=== PATIENT | male | born 1990 | race Caucasian/White ===

== ENCOUNTER 2019-10-16 06:20 | Emergency (ER) | payer OTHER, MEDICAID ==
[2019-10-16] MEDS ORDERED: fentaNYL 100 MCG/2 ML SDV IVPUSH ONE ×3 (06:50→08:36)
[2019-10-16] MEDS ORDERED: Sodium Chloride 0.9% 10 ML Syringe FLUSH PRN (06:50)
[2019-10-16] MEDS ORDERED: Ondansetron 4 MG/2 ML SDV IV ONE ×2 (06:50→08:36)
--- NOTE | 2019-10-16 06:57 | EDM.PDOC ---
<Alfa Wesley - Last Filed: 10/16/19 08:10> ED HPI GENERAL MEDICAL PROBLEM - General Chief Complaint: Lower Extremity Injury/Pain Stated Complaint: SLIPPED ON ICE/ANKLE CRACKED Time Seen by Provider: 10/16/19 06:45 Source of Information: Reports: Family, RN, RN Notes Reviewed - History of Present Illness INITIAL COMMENTS - FREE TEXT/NARRATIVE: Pt presents to ER with c/o severe right lower leg pain sustained when he slipped on the ice on his way to work this morning. Denies head injury, or any other areas of pain. Pt denies any significant past medical history. He has not eaten yet today. Onset: Today, Sudden Duration: Constant Location: Reports: Lower Extremity, Right Quality: Reports: Ache Severity: Severe Improves with: Reports: Immobilization Worsens with: Reports: Movement Associated Symptoms: Reports: No Other Symptoms - Related Data Allergies Allergy/AdvReac Type Severity Reaction Status Date / Time No Known Allergies Allergy Verified 10/16/19 06:41 Home Meds: Home Meds . [No Known Home Meds] 10/16/19 [History] Social & Family History - Living Situation & Occupation Living situation: Reports: with Significant Other Occupation: Employed ED EXAM, GENERAL - Physical Exam Free Text/Narrative:: No changes to exam as documented by Allan Amador PIER [employer] for this encounter. Peripheral Pulses: 3+: Posterior Tibial (L), Posterior Tibial (R), Dorsalis Pedis (L), Dorsalis Pedis (R) Back Exam: Normal Inspection Psychiatric: Normal Affect, Normal Mood Skin Exam: Warm, Dry, Intact, Normal Color, No Rash ED TRAUMA EXTREMITY PROCEDURES - Splinting Right Lower Extremity Splint Site: Rt long leg Pre-Procedure NV Status: Normal Post-Procedure NV Status: Normal Splint Material: Fiberglass Splint Design: Sugar Tong, Posterior Applied & Form Fitted By: Provider, Nurse Provider Post-Splint Application NV Check: NV Status Normal, Good Position Complications: No Course - Vital Signs Last Recorded V/S: Last Vital Signs Temp 35.4 C L 10/16/19 06:35 Pulse 78 10/16/19 06:35 Resp 18 10/16/19 06:35 BP 137/93 H 10/16/19 06:35 Pulse Ox 100 10/16/19 06:35 - Orders/Labs/Meds Orders: Active Orders 24 hr Category Date Time Status Peripheral IV Care [RC] . DIRECTED Care 10/16/19 06:50 Active Splinting [RC] ASDIRECTED Care 10/16/19 07:20 Active Ankle 2V Rt [CR] Stat Exams 10/16/19 07:20 Taken DME for Discharge [COMM] Routine Oth 10/16/19 07:38 Ordered Peripheral IV Insertion Adult [OM.PC] Stat Oth 10/16/19 06:49 Ordered Meds: Medications Discontinued Medications Generic Name Dose Route Start Last Admin Trade Name Freq PRN Reason Stop Dose Admin Fentanyl 100 mcg 10/16/19 06:50 10/16/19 07:02 Sublimaze IVPUSH 10/16/19 06:51 100 mcg ONETIME ONE Administration Fentanyl 50 mcg 10/16/19 07:20 10/16/19 07:24 Sublimaze IVPUSH 10/16/19 07:21 50 mcg ONETIME ONE Administration Fentanyl 50 mcg 10/16/19 08:36 10/16/19 08:43 Sublimaze IVPUSH 10/16/19 08:37 50 mcg ONETIME ONE Administration Lactated Ringer's 1,000 mls @ 999 mls/hr 10/16/19 07:19 10/16/19 07:24 Ringers, Lactated IV 10/16/19 08:19 999 mls/hr .BOLUS ONE Administration Midazolam HCl 2 mg 10/16/19 07:19 10/16/19 07:27 Versed 1 Mg/Ml IVPUSH 10/16/19 07:20 2 mg ONETIME ONE Administration Ondansetron HCl 4 mg 10/16/19 06:50 10/16/19 07:02 Zofran IV 10/16/19 06:51 4 mg ONETIME ONE Administration Ondansetron HCl 4 mg 10/16/19 08:36 10/16/19 08:43 Zofran IV 10/16/19 08:37 4 mg ONETIME ONE Administration Sodium Chloride 10 ml 10/16/19 06:50 10/16/19 07:07 Saline Flush FLUSH 10 ml ASDIRECTED PRN Administration Keep Vein Open - Radiology Interpretation Free Text/Narrative:: XR Rt Tib/Fib: displaced angulated distal tib. and distal fib. fx, see Rad. report. Departure - Departure Time of Disposition: 08:13 Disposition: DC/Tfer to Acute Hospital 02 Condition: Fair Clinical Impression: Traumatic closed fracture of distal tibia with fibula with minimal displacement Qualifiers: Encounter type: initial encounter Laterality: right Qualified Code(s): S82.301A - Unspecified fracture of lower end of right tibia, initial encounter for closed fracture - Discharge Information *PRESCRIPTION DRUG MONITORING PROGRAM REVIEWED*: Not Applicable *COPY OF PRESCRIPTION DRUG MONITORING REPORT IN PATIENT CASI: Not Applicable Referrals: PCP,None [Primary Care Provider] - Forms: ED Department Discharge, Interfacility Transfer [facility] Sepsis Event Note - Focused Exam Date Exam was Performed: 10/16/19 Time Exam was Performed: 08:10 - My Orders Last 24 Hours: My Active Orders 10/16/19 06:49 Peripheral IV Insertion Adult [OM.PC] Stat 10/16/19 06:50 Peripheral IV Care [RC] . DIRECTED - Assessment/Plan Last 24 Hours: My Active Orders 10/16/19 06:49 Peripheral IV Insertion Adult [OM.PC] Stat 10/16/19 06:50 Peripheral IV Care [RC] . DIRECTED <Malik Amador - Last Filed: 10/16/19 19:31> ED HPI GENERAL MEDICAL PROBLEM - General Source of Information: Reports: Patient History Limitations: Reports: No Limitations Right Ankle Pain Score (Numeric/FACES): 7 Past Medical History - Past Health History Medical/Surgical History: Denies Medical/Surgical History Social & Family History - Family History Family Medical History: Noncontributory Review of Systems - Review of Systems Review Of Systems: Comprehensive ROS is negative, except as noted in HPI. ED EXAM, GENERAL - Physical Exam Exam: See Below Exam Limited By: No Limitations General Appearance: Alert, WD/WN, No Apparent Distress Respiratory/Chest: No Respiratory Distress, Lungs Clear, No Accessory Muscle Use Cardiovascular: Normal Peripheral Pulses, Regular Rate, Rhythm Extremities: No: Normal Inspection (There is a clear deformity to the right distal tib fib with posterior angulation. No breaks in the skin or tenting of the skin. Pulses present and cms appropriate. Rest of the right lower extremity is unremarkable. ) Neurological: Alert, Oriented, Normal Cognition, No Motor/Sensory Deficits Course - Orders/Labs/Meds Meds: Medications Discontinued Medications Generic Name Dose Route Start Last Admin Trade Name Freq PRN Reason Stop Dose Admin Fentanyl 100 mcg 10/16/19 06:50 10/16/19 07:02 Sublimaze IVPUSH 10/16/19 06:51 100 mcg ONETIME ONE Administration Fentanyl 50 mcg 10/16/19 07:20 10/16/19 07:24 Sublimaze IVPUSH 10/16/19 07:21 50 mcg ONETIME ONE Administration Fentanyl 50 mcg 10/16/19 08:36 10/16/19 08:43 Sublimaze IVPUSH 10/16/19 08:37 50 mcg ONETIME ONE Administration Lactated Ringer's 1,000 mls @ 999 mls/hr 10/16/19 07:19 10/16/19 07:24 Ringers, Lactated IV 10/16/19 08:19 999 mls/hr .BOLUS ONE Administration Midazolam HCl 2 mg 10/16/19 07:19 10/16/19 07:27 Versed 1 Mg/Ml IVPUSH 10/16/19 07:20 2 mg ONETIME ONE Administration Ondansetron HCl 4 mg 10/16/19 06:50 10/16/19 07:02 Zofran IV 10/16/19 06:51 4 mg ONETIME ONE Administration Ondansetron HCl 4 mg 10/16/19 08:36 10/16/19 08:43 Zofran IV 10/16/19 08:37 4 mg ONETIME ONE Administration Sodium Chloride 10 ml 10/16/19 06:50 10/16/19 07:07 Saline Flush FLUSH 10 ml ASDIRECTED PRN Administration Keep Vein Open - Re-Assessments/Exams Free Text/Narrative Re-Assessment/Exam: 10/16/19 07:08 IV established. Xray on my extemporaneous review shows a spiral fracture of the distal tib fib with tib posterior displacement angling. Fentanyl 100mcg IVP Report to Dr. Wesley as well as care transfered to Dr. Wesley at shift change. Sepsis Event Note - Evaluation Sepsis Screening Result: No Definite Risk - Focused Exam Date Exam was Performed: 10/16/19 Time Exam was Performed: 19:30
[2019-10-16] MEDS ORDERED: Lactated Ringers 1,000 ML IV ONE (07:19)
[2019-10-16] MEDS ORDERED: Midazolam 1 MG/ML 2 ML SDV IVPUSH ONE (07:19)
== END 2019-10-16 08:50 ==
LOC: DL.ED 06:20
DX: S82.241A Displaced spiral fracture of shaft of right tibia, initial encounter for closed fracture (principal); S82.441A Displaced spiral fracture of shaft of right fibula, initial encounter for closed fracture; W00.0XXA Fall on same level due to ice and snow, initial encounter
CPT/HCPCS: 29505; 73600-RT; 73610-RT; 96361; 96374; 96375; 96376; 99284-25; J2250; J2405; J3010; J7120